=== PATIENT | male | born 1980 | race Caucasian/White ===

== ENCOUNTER 2019-11-27 00:09 | Emergency (ER) | payer SELFPAY ==
[~2019-11-27] VITALS: Ht 188 cm; Wt 104.3 kg
== END 2019-11-27 01:03 | disposition home or self-care (01) ==
LOC: ED 00:09
DX: R11.0 Nausea (principal); F17.200 Nicotine dependence, unspecified, uncomplicated; Z88.0 Allergy status to penicillin
CPT/HCPCS: 99283